=== PATIENT | male | born 1940 | race Caucasian/White ===

== ENCOUNTER 2019-03-16 17:46 | Inpatient (IN) | payer MEDICARE ==
[~2019-03-16] VITALS: Ht 193 cm; Wt 83.9 kg
[2019-03-16] MEDS ORDERED: Z GUARD REMEDY PASTE 57 GM TUBE TOP PRN (18:00)
[2019-03-16] MEDS ORDERED: VALA100026 PO (18:29)
[2019-03-16] MEDS ORDERED: LACT1CAP57 PO (18:29)
[2019-03-16] MEDS ORDERED: LIDO30AD10 TOP (18:29)
[2019-03-16] MEDS ORDERED: FINA5TAB11 PO (18:29)
[2019-03-16] MEDS ORDERED: VANC1.2521 IV (18:29)
[2019-03-16] MEDS ORDERED: TAMS-3 PO (18:29)
[2019-03-16] MEDS ORDERED: CYCL5TAB PO (18:29)
[2019-03-16] MEDS ORDERED: ASPI81TA31 PO (18:29)
[2019-03-16 19:30] VITALS: BP 145/71
[2019-03-17] MEDS: HYDROCODONE/APAP 5-325MG TABLET PO PRN ×4 (01:47→22:43)
[2019-03-17 06:20] VITALS: BP 136/80
[2019-03-17 08:53] VITALS: BP 136/79
[2019-03-17] MEDS: LIDOCAINE 5% PATCH TD SCH (11:38)
[2019-03-17 11:44] LABS: BASOPHILS # (AUTO) 0.1 K/uL (0.0-8.0); BASOPHILS % (AUTO) 0.5 % (0.0-2.0); EOSINOPHILS % (AUTO) 0.3 % (0.0-7.0); HEMATOCRIT 38.5 % (36.7-47.1); HEMOGLOBIN 12.9 g/dL (12.5-16.3); LYMPHOCYTES # (AUTO) 0.9 K/uL (20.0-40.0); LYMPHOCYTES % (AUTO) 6.2 % (20.5-51.5); MEAN CORPUSCULAR HEMOGLOBIN 33.3 uug (23.8-33.4); MEAN CORPUSCULAR HGB CONC 33 g/dL (32.5-36.3); MEAN CORPUSCULAR VOLUME 99.6 fL (73.0-96.2); MONOCYTES # (AUTO) 1.8 K/uL (2.0-10.0); MONOCYTES % (AUTO) 13.3 % (0.0-11.0); NEUTROPHILS # (AUTO) 11.1 K/uL (1.8-8.9); NEUTROPHILS % (AUTO) 79.7 % (38.5-71.5); PLATELET COUNT (AUTO) 520 K/uL (152-348); RED BLOOD CELL COUNT(AUTO) 3.87 MIL/uL (4.06-5.63); WHITE BLOOD COUNT (AUTO) 13.9 K/uL (3.6-10.2)
[2019-03-17 11:49] LABS: CARBON DIOXIDE 29 mmol/L (21-32); CHLORIDE 102 mmol/L (98-107); CREATININE 0.9 mg/dL (0.6-1.3); GLUCOSE 166 mg/dL (74-106); POTASSIUM 4.3 mmol/L (3.5-5.1); UREA NITROGEN, BLOOD 21 mg/dL (7-18)
[2019-03-17 11:54] LABS: ALANINE AMINOTRANSFERASE 225 U/L (16-63); ALKALINE PHOSPHATASE 113 U/L (50-136); ASPARTATE AMINOTRANSFERASE 91 U/L (15-37); BILIRUBIN,TOTAL 0.3 mg/dL (0.2-1.0); TOTAL PROTEIN, SERUM 6.1 g/dL (6.4-8.2)
[2019-03-17] MEDS: VANCOMYCIN IV 1,250 MG in IV DEXTROSE 5% 500 ML IV SCH (12:49)
[2019-03-17] MEDS ORDERED: Medication Not On Formulary EA (Cyclobenzaprine Hcl 5 MG) PO SCH (14:00)
[2019-03-17] MEDS ORDERED: CYCLOBENZAPRINE HCL 10 MG TABLET PO SCH (14:00)
[2019-03-17] MEDS: CULTURELLE CAPSULE PO SCH (16:39)
[2019-03-17 17:37] VITALS: BP 119/75
[2019-03-17 19:38] VITALS: BP 125/71
[2019-03-17] MEDS: TAMSULOSIN HCL 0.4 MG CAP.SR.24H PO SCH (20:43)
[2019-03-18] MEDS: VANCOMYCIN IV 1,250 MG in IV DEXTROSE 5% 500 ML IV SCH ×2 (00:59→12:33)
[2019-03-18 06:15] VITALS: BP 115/63
[2019-03-18 07:21] LABS: BASOPHILS % (AUTO) 0.3 % (0.0-2.0); EOSINOPHILS # (AUTO) 0.1 K/uL (0.0-0.7); EOSINOPHILS % (AUTO) 0.4 % (0.0-7.0); HEMATOCRIT 41.7 % (36.7-47.1); HEMOGLOBIN 14.1 g/dL (12.5-16.3); LYMPHOCYTES # (AUTO) 0.9 K/uL (20.0-40.0); LYMPHOCYTES % (AUTO) 7.2 % (20.5-51.5); MEAN CORPUSCULAR HEMOGLOBIN 33.7 uug (23.8-33.4); MEAN CORPUSCULAR HGB CONC 34 g/dL (32.5-36.3); MEAN CORPUSCULAR VOLUME 99.5 fL (73.0-96.2); MONOCYTES # (AUTO) 1.8 K/uL (2.0-10.0); MONOCYTES % (AUTO) 13.8 % (0.0-11.0); NEUTROPHILS % (AUTO) 78.3 % (38.5-71.5); PLATELET COUNT (AUTO) 559 K/uL (152-348); RED BLOOD CELL COUNT(AUTO) 4.19 MIL/uL (4.06-5.63); WHITE BLOOD COUNT (AUTO) 12.8 K/uL (3.6-10.2)
[2019-03-18 07:29] LABS: CARBON DIOXIDE 31 mmol/L (21-32); CHLORIDE 101 mmol/L (98-107); GLUCOSE 114 mg/dL (74-106); MAGNESIUM 1.8 mg/dL (1.8-2.4); PHOSPHOROUS 3.4 mg/dL (2.5-4.9); POTASSIUM 4.3 mmol/L (3.5-5.1); UREA NITROGEN, BLOOD 21 mg/dL (7-18)
[2019-03-18 08:14] VITALS: BP 123/72
[2019-03-18] MEDS: ASPIRIN 81 MG TAB.CHEW PO SCH (08:36)
[2019-03-18] MEDS: CULTURELLE CAPSULE PO SCH ×2 (08:36→16:24)
[2019-03-18] MEDS: FINASTERIDE 5 MG TABLET PO SCH (08:37)
[2019-03-18] MEDS: LIDOCAINE 5% PATCH TD SCH (08:37)
[2019-03-18] MEDS: VALACYCLOVIR HCL 500 MG TABLET PO SCH (08:37)
[2019-03-18] MEDS: HYDROCODONE/APAP 5-325MG TABLET PO PRN (08:55)
[2019-03-18] MEDS ORDERED: Medication Not On Formulary EA (Valacyclovir Hcl (Valacyclovir) 1,000 MG) PO SCH (09:00)
[2019-03-18 14:51] LABS: *BILIRUBIN,URIN NEGATIVE (NEGATIVE); *BLOOD, URINE 2+ (NEGATIVE); *COLOR,URINE YELLOW (YELLOW); *KETONES,URINE NEGATIVE (NEGATIVE); *UROBILINOGEN,URINE 0.2 E.U./dl (NORMAL); LEUKOCYTE ESTERASE ,URINE TRACE (NEGATIVE); NITRITE, URINE NEGATIVE (NEGATIVE); PH,URINE 5.5 (5.0-8.0); UGLUCOSE NEGATIVE (NEGATIVE)
[2019-03-18 15:07] LABS: *CLARITY,URINE SLIGHTLY CLOUDY (CLEAR)
[2019-03-18 15:09] LABS: MUCUS,URINE MANY /LPF (0-FEW); RBC,URINE 20-50 /HPF (0-3); SQUAMOUS EPITHELIAL CELL,UR FEW /HPF (NONE SEEN); URINE AMORPHOUS URATE MODERATE /HPF
[2019-03-18] MEDS: ACETAMINOPHEN 325 MG TABLET PO PRN (15:48)
[2019-03-18 17:13] VITALS: BP 106/63
[2019-03-18 19:38] VITALS: BP 127/68
[2019-03-18] MEDS: TAMSULOSIN HCL 0.4 MG CAP.SR.24H PO SCH (20:57)
[2019-03-19] MEDS: VANCOMYCIN IV 1,250 MG in IV DEXTROSE 5% 500 ML IV SCH ×2 (00:15→01:00)
[2019-03-19 07:30] VITALS: BP 101/66
[2019-03-19] MEDS: CULTURELLE CAPSULE PO SCH ×2 (08:52→17:18)
[2019-03-19] MEDS: ASPIRIN 81 MG TAB.CHEW PO SCH (08:52)
[2019-03-19] MEDS: FINASTERIDE 5 MG TABLET PO SCH (08:53)
[2019-03-19] MEDS: VALACYCLOVIR HCL 500 MG TABLET PO SCH (08:53)
[2019-03-19] MEDS: LIDOCAINE 5% PATCH TD SCH (09:00)
[2019-03-19] MEDS: ACETAMINOPHEN 325 MG TABLET PO PRN (09:59)
[2019-03-19] MEDS ORDERED: VANCOMYCIN IV 1,250 MG in IV DEXTROSE 5% 500 ML IV SCH (12:00)
[2019-03-19 16:31] VITALS: BP 119/68
[2019-03-19 20:10] VITALS: BP 111/65
[2019-03-19] MEDS ORDERED: DOCUSATE SODIUM 100 MG CAPSULE PO SCH (21:00)
[2019-03-19] MEDS: TAMSULOSIN HCL 0.4 MG CAP.SR.24H PO SCH (21:29)
[2019-03-19] MEDS: CEFTRIAXONE 2 G in IV DEXTROSE 5% 100 ML IV SCH (22:00)
[2019-03-20 05:12] VITALS: BP 115/65
[2019-03-20 09:45] VITALS: BP 117/68
[2019-03-20] MEDS: MIRALAX 17 GM POWD.PACK PO SCH (10:04)
[2019-03-20] MEDS: DOCUSATE SODIUM 100 MG CAPSULE PO SCH ×2 (10:04→20:48)
[2019-03-20] MEDS: LIDOCAINE 5% PATCH TD SCH (10:04)
[2019-03-20] MEDS: ASPIRIN 81 MG TAB.CHEW PO SCH (10:04)
[2019-03-20] MEDS: CULTURELLE CAPSULE PO SCH ×2 (10:05→17:46)
[2019-03-20] MEDS: VALACYCLOVIR HCL 500 MG TABLET PO SCH (10:05)
[2019-03-20] MEDS: FINASTERIDE 5 MG TABLET PO SCH (10:06)
[2019-03-20 17:06] VITALS: BP 117/68
[2019-03-20 19:53] VITALS: BP 107/60
[2019-03-20] MEDS: TAMSULOSIN HCL 0.4 MG CAP.SR.24H PO SCH (20:47)
[2019-03-20] MEDS: CEFTRIAXONE 2 G in IV DEXTROSE 5% 100 ML IV SCH (21:04)
[2019-03-21 05:08] VITALS: BP 103/63
[2019-03-21 08:00] VITALS: BP 124/64
[2019-03-21] MEDS: ASPIRIN 81 MG TAB.CHEW PO SCH (08:37)
[2019-03-21] MEDS: MIRALAX 17 GM POWD.PACK PO SCH (08:37)
[2019-03-21] MEDS: DOCUSATE SODIUM 100 MG CAPSULE PO SCH ×2 (08:37→20:25)
[2019-03-21] MEDS: VALACYCLOVIR HCL 500 MG TABLET PO SCH (08:38)
[2019-03-21] MEDS: FINASTERIDE 5 MG TABLET PO SCH (08:38)
[2019-03-21] MEDS: CULTURELLE CAPSULE PO SCH ×2 (08:38→17:26)
[2019-03-21] MEDS: LIDOCAINE 5% PATCH TD SCH (08:38)
[2019-03-21 16:11] VITALS: BP 113/65
[2019-03-21] MEDS: TAMSULOSIN HCL 0.4 MG CAP.SR.24H PO SCH (20:25)
[2019-03-21 20:41] VITALS: BP 109/62
[2019-03-21] MEDS: CEFTRIAXONE 2 G in IV DEXTROSE 5% 100 ML IV SCH (21:45)
[2019-03-22 06:24] VITALS: BP 118/69
[2019-03-22 07:35] VITALS: BP 120/69
[2019-03-22] MEDS: FINASTERIDE 5 MG TABLET PO SCH (08:22)
[2019-03-22] MEDS: CULTURELLE CAPSULE PO SCH ×2 (08:22→17:43)
[2019-03-22] MEDS: DOCUSATE SODIUM 100 MG CAPSULE PO SCH ×2 (08:22→20:07)
[2019-03-22] MEDS: ASPIRIN 81 MG TAB.CHEW PO SCH (08:22)
[2019-03-22] MEDS: LIDOCAINE 5% PATCH TD SCH (08:23)
[2019-03-22] MEDS: MIRALAX 17 GM POWD.PACK PO SCH (08:23)
[2019-03-22] MEDS: VALACYCLOVIR HCL 500 MG TABLET PO SCH (08:23)
[2019-03-22 15:35] VITALS: BP 123/76
[2019-03-22 19:43] VITALS: BP 119/45
[2019-03-22] MEDS: TAMSULOSIN HCL 0.4 MG CAP.SR.24H PO SCH (20:07)
[2019-03-22] MEDS: CEFTRIAXONE 2 G in IV DEXTROSE 5% 100 ML IV SCH (21:22)
[2019-03-23 04:50] VITALS: BP 109/66
[2019-03-23] MEDS: ASPIRIN 81 MG TAB.CHEW PO SCH (08:01)
[2019-03-23] MEDS: CULTURELLE CAPSULE PO SCH ×2 (08:01→17:30)
[2019-03-23] MEDS: FINASTERIDE 5 MG TABLET PO SCH (08:01)
[2019-03-23] MEDS: DOCUSATE SODIUM 100 MG CAPSULE PO SCH ×2 (08:01→20:29)
[2019-03-23] MEDS: VALACYCLOVIR HCL 500 MG TABLET PO SCH (08:02)
[2019-03-23] MEDS: MIRALAX 17 GM POWD.PACK PO SCH (08:02)
[2019-03-23] MEDS: LIDOCAINE 5% PATCH TD SCH (08:03)
[2019-03-23 08:46] VITALS: BP 120/58
[2019-03-23 16:00] VITALS: BP 115/72
[2019-03-23 19:53] VITALS: BP 111/69
[2019-03-23] MEDS: TAMSULOSIN HCL 0.4 MG CAP.SR.24H PO SCH (20:29)
[2019-03-23] MEDS: CEFTRIAXONE 2 G in IV DEXTROSE 5% 100 ML IV SCH (21:14)
[2019-03-24 05:07] VITALS: BP 122/79
[2019-03-24 07:06] LABS: CARBON DIOXIDE 30 mmol/L (21-32); CHLORIDE 102 mmol/L (98-107); CREATININE 0.9 mg/dL (0.6-1.3); GLUCOSE 101 mg/dL (74-106); PHOSPHOROUS 3.3 mg/dL (2.5-4.9); POTASSIUM 4.2 mmol/L (3.5-5.1); UREA NITROGEN, BLOOD 24 mg/dL (7-18)
[2019-03-24 07:08] LABS: HEMATOCRIT 38.7 % (36.7-47.1); HEMOGLOBIN 13.1 g/dL (12.5-16.3); MEAN CORPUSCULAR HEMOGLOBIN 33.3 uug (23.8-33.4); MEAN CORPUSCULAR HGB CONC 34 g/dL (32.5-36.3); MEAN CORPUSCULAR VOLUME 98.6 fL (73.0-96.2); PLATELET COUNT (AUTO) 333 K/uL (152-348); RED BLOOD CELL COUNT(AUTO) 3.92 MIL/uL (4.06-5.63); WHITE BLOOD COUNT (AUTO) 9.1 K/uL (3.6-10.2)
[2019-03-24 08:36] LABS: BAND % (MANUAL) 0 % (0-10); BASOPHILS % (MANUAL) 0 % (0-2); EOSINOPHILS % (MANUAL) 5 % (0-8); LYMPHOCYTES % (MANUAL) 12 % (20-40); MONOCYTES % (MANUAL) 9 % (2-10); NEUTROPHILS % (MANUAL) 74 % (42-75)
[2019-03-24 08:40] VITALS: BP 123/70
[2019-03-24] MEDS: DOCUSATE SODIUM 100 MG CAPSULE PO SCH ×2 (09:25→21:26)
[2019-03-24] MEDS: LIDOCAINE 5% PATCH TD SCH (09:25)
[2019-03-24] MEDS: CULTURELLE CAPSULE PO SCH ×2 (09:25→17:13)
[2019-03-24] MEDS: MIRALAX 17 GM POWD.PACK PO SCH (09:25)
[2019-03-24] MEDS: ASPIRIN 81 MG TAB.CHEW PO SCH (09:25)
[2019-03-24] MEDS: VALACYCLOVIR HCL 500 MG TABLET PO SCH (09:26)
[2019-03-24] MEDS: FINASTERIDE 5 MG TABLET PO SCH (09:28)
[2019-03-24 17:21] VITALS: BP 118/75
[2019-03-24 20:52] VITALS: BP 92/51
[2019-03-24] MEDS: TAMSULOSIN HCL 0.4 MG CAP.SR.24H PO SCH (21:26)
[2019-03-24] MEDS: CEFTRIAXONE 2 G in IV DEXTROSE 5% 100 ML IV SCH (21:26)
[2019-03-25 04:30] VITALS: BP 106/56
[2019-03-25] MEDS: ACETAMINOPHEN 325 MG TABLET PO PRN (06:12)
[2019-03-25] MEDS: CULTURELLE CAPSULE PO SCH ×2 (08:23→17:18)
[2019-03-25] MEDS: DOCUSATE SODIUM 100 MG CAPSULE PO SCH ×2 (08:23→21:25)
[2019-03-25] MEDS: FINASTERIDE 5 MG TABLET PO SCH (08:23)
[2019-03-25] MEDS: ASPIRIN 81 MG TAB.CHEW PO SCH (08:23)
[2019-03-25] MEDS: LIDOCAINE 5% PATCH TD SCH (08:24)
[2019-03-25] MEDS: MIRALAX 17 GM POWD.PACK PO SCH (08:24)
[2019-03-25] MEDS: VALACYCLOVIR HCL 500 MG TABLET PO SCH (08:24)
[2019-03-25 09:33] VITALS: BP 120/67
[2019-03-25 16:22] VITALS: BP 133/77
[2019-03-25 20:56] VITALS: BP 108/64
[2019-03-25] MEDS: CEFTRIAXONE 2 G in IV DEXTROSE 5% 100 ML IV SCH (21:25)
[2019-03-25] MEDS: TAMSULOSIN HCL 0.4 MG CAP.SR.24H PO SCH (21:25)
[2019-03-26 04:52] VITALS: BP 114/70
[2019-03-26 07:30] VITALS: BP 115/73
[2019-03-26] MEDS: DOCUSATE SODIUM 100 MG CAPSULE PO SCH (08:45)
[2019-03-26] MEDS: VALACYCLOVIR HCL 500 MG TABLET PO SCH (08:45)
[2019-03-26] MEDS: FINASTERIDE 5 MG TABLET PO SCH (08:45)
[2019-03-26] MEDS: CULTURELLE CAPSULE PO SCH ×2 (08:45→16:11)
[2019-03-26] MEDS: ASPIRIN 81 MG TAB.CHEW PO SCH (08:46)
[2019-03-26] MEDS: MIRALAX 17 GM POWD.PACK PO SCH (08:46)
[2019-03-26] MEDS: LIDOCAINE 5% PATCH TD SCH (08:46)
[2019-03-26 16:38] VITALS: BP 119/72
[2019-03-26] MEDS: ACETAMINOPHEN 325 MG TABLET PO PRN (18:26)
== END 2019-03-26 19:00 | disposition short-term general hospital (02) | DRG 871 ==
PROVIDERS: ADMIT Physical Medicine & Rehabilitation Pain Medicine; ATTEND Physical Medicine & Rehabilitation Pain Medicine
DX: A41.01 Sepsis due to Methicillin susceptible Staphylococcus aureus (principal); G93.41 Metabolic encephalopathy; I21.4 Non-ST elevation (NSTEMI) myocardial infarction; G06.1 Intraspinal abscess and granuloma; N13.6 Pyonephrosis; E87.2 Acidosis; N39.0 Urinary tract infection, site not specified; M46.26 Osteomyelitis of vertebra, lumbar region; N31.9 Neuromuscular dysfunction of bladder, unspecified; B02.9 Zoster without complications; M46.46 Discitis, unspecified, lumbar region; H90.5 Unspecified sensorineural hearing loss; K57.30 Diverticulosis of large intestine without perforation or abscess without bleeding; M48.061 Spinal stenosis, lumbar region without neurogenic claudication; N21.0 Calculus in bladder; K76.9 Liver disease, unspecified; N40.1 Benign prostatic hyperplasia with lower urinary tract symptoms; R33.8 Other retention of urine; Z91.81 History of falling
CPT/HCPCS: 36415; 70030-TC; 72148; 73590; 83735; 84100; 85025; 85651; 87040; 87086; 92507; 92523; 97110; 97112; 97116; 97165; 97530; 97535; A4663; C1758; J0696; J3370; J7050; J7060